=== PATIENT | female | born 2000 | race Caucasian/White ===

== ENCOUNTER 2022-04-25 22:42 | Emergency (ER) | payer BC, OTHER ==
[~2022-04-25] VITALS: Ht 170 cm; Wt 74.8 kg
[2022-04-25 23:10] VITALS: BP 108/69
--- NOTE | 2022-04-25 23:34 | ED Upper Extremity ---
General Chief Complaint: Laceration Stated Complaint: RIGHT THUMB LAC Nursing Triage Note: PT AMB TO ED BY POV WITH C/O LAC TO R THUMG. PT REPORTS SHE WAS FILLING A GLASS SALT CONTAINER, CONTAINER BROKE AND PT CUT HER FINGER ON GLASS. NEUROMUSCULAR FUNCITON INTACT, CAP REFILL <3 SEC. Source: patient Exam Limitations: no limitations History of Present Illness Date Seen by Provider: Apr 25, 2022 Time Seen by Provider: 23:13 Initial Comments Patient to the ER by private conveyance chief complaint she was taking the top off of a restaurant salt canister to refill it and it sliced a flap on her right thumb palmar side. She is up-to-date on tetanus vaccine. No other significant medical history or immunocompromise. This happened about 30 minutes prior to arrival. She cleaned the wound with iodine and soap and water at home and put a bandage over it but it would not stop bleeding. Allergies and Home Medications Patient Home Medication List Home Medication List Reviewed: Yes Review of Systems Constitutional: No chills, No diaphoresis EENTM: No ear discharge, No ear pain Respiratory: No cough, No dyspnea on exertion Cardiovascular: No chest pain, No palpitations Gastrointestinal: No abdominal pain, No jaundice, No melena, No nausea : No All Other Systems Reviewed Negative Unless Noted: Yes Past Pbggtjz-Mhsjxx-Tcsovg Hx Patient Social History Tobacco Use?: No Use of E-Cig and/or Vaping dev: No Substance use?: No Alcohol Use?: No Pt feels they are or have been: No Immunizations Up To Date Influenza Vaccine Up-to-Date: Yes; Up-to-Date First/Initial COVID19 Vaccinat: 2020 Second COVID19 Vaccination Ariel: 2020 Physical Exam Vital Signs Vital Signs - First Documented 04/25/22 23:10 Temp 36.6 Pulse 82 Resp 16 B/P (MAP) 108/69 (82) Pulse Ox 99 O2 Delivery Room Air Capillary Refill : Less Than 3 Seconds Height, Weight, BMI Height: '" Weight: lbs. oz. kg; 25.00 BMI Method: General Appearance: WD/WN, no apparent distress HEENT: PERRL/EOMI, pharynx normal Neck: full range of motion, normal inspection Cardiovascular: normal peripheral pulses, regular rate, rhythm Respiratory: no respiratory distress, no accessory muscle use Gastrointestinal: normal bowel sounds, non tender Hand: Right, laceration (V-shaped flap laceration on the proximal side of the right thumb 1.5 cm total length.) Neurologic/Psychiatric: alert, normal mood/affect, oriented x 3 Procedures/Interventions Wound Location: Upper Extremities Other Wound Location Right thumb palmar side proximal phalanx Wound Length (cm): 2.5 Wound's Depth, Shape: flap (V-shaped), sub Q Wound Explored: clean Betadine Prep?: Yes (Chlorhexidine soap and sterile saline) Wound Debrided: minimal Progress Thoroughly cleansed and sealed with cyanoacrylate Progress/Results/Core Measures Results/Orders Vital Signs/I&O 04/25/22 23:10 Temp 36.6 Pulse 82 Resp 16 B/P (MAP) 108/69 (82) Pulse Ox 99 O2 Delivery Room Air Blood Pressure Mean: 82 Progress Progress Note : Time: 23:31 Progress Note The patient declined stitches so we applied glue. Departure Impression Primary Impression: Laceration of right thumb Qualified Codes: S61.011A - Laceration without foreign body of right thumb without damage to nail, initial encounter Disposition: 01 HOME, SELF-CARE Condition: Stable Departure-Patient Inst. Decision time for Depature: 23:36 Referrals: NO,LOCAL PHYSICIAN (PCP/Family) Primary Care Physician Patient Instructions: Laceration Repair With Glue (DC) Add. Discharge Instructions: Keep skin clean with regular soap and water. It is okay to submersing hand wash hands take showers or baths. This glue will fall off on its own over the next 7 to 10 days. If you notice redness going up your arm, fevers, chills, nausea or other signs of infection and you need to return to your doctor or the ER for reevaluation. Cephalexin 1 capsule twice a day for 3 days to prevent infection. All discharge instructions reviewed with patient and/or family. Voiced understanding. Scripts Cephalexin (Cephalexin) 500 Mg Tablet 500 MG PO BID for 3 Days, #6 TAB 0 Refills Prov: JOANIE ELAINE 04/25/22 JOANIE ELAINE Apr 25, 2022 23:34
[2022-04-25] MEDS ORDERED: CEPH500T PO (23:37)
== END 2022-04-25 23:45 | disposition home or self-care (01) ==
LOC: ER 22:46
DX: S61.011A Laceration without foreign body of right thumb without damage to nail, initial encounter (principal); W25.XXXA Contact with sharp glass, initial encounter; Y92.511 Restaurant or cafe as the place of occurrence of the external cause